=== PATIENT | male | born 1990 | race Caucasian/White ===

== ENCOUNTER → 2022-12-07 | Outpatient (CLI) | payer BC ==
--- NOTE | 2022-12-08 20:54 | MR ---
EXAMINATION TYPE: MR knee RT wo con DATE OF EXAM: 12/07/2022 COMPARISON: None HISTORY: 32-year-old male M25.561, Pain in right knee TECHNIQUE: Multiplanar, multisequence imaging of the right knee is performed without IV contrast. FINDINGS: There are diminutive fibers of the ACL, possibly relating to prior injury. PCL is intact. The MCL and LCL complex are intact. There is a diminutive body of the medial meniscus possibly relating to prior injury or partial menisc ectomy. Clinically correlate. Degenerative signal within the body of the lateral meniscus without discrete tear. Tricompartmental articular cartilage volume appears maintained. Physiologic knee joint fluid. No sizable Monroe's cyst. There is fusiform thickening of the proximal to middle third patellar tendon with abnormal intrinsic signal and surrounding soft tissue edema. In addition, there is a partial thickness tear involving mi d and medial fibers of the proximal patellar tendon measuring 1.0 cm long and 1.0 cm wide. Quadriceps tendon is intact. Normal popliteal artery anatomy in muscle bulk. No suspicious bone marrow replacement. IMPRESSION: 1. Marked contusion of the proximal to mid patellar tendon with surrounding soft tissue edema. There is an accompanying partial-thickness tear measuring 10 x 10 mm of the mid and medial fibers at its pa tellar origin. 2. Diminutive fibers of the ACL, possibly relating to prior injury. 3. Additional diminutive body of the medial meniscus. Query history of prior meniscal tear or partial meniscectomy.
== END | disposition home or self-care (01) ==
LOC: RADMRIMAIN 05:47
PROVIDERS: ATTEND Orthopaedic Surgery
DX: S83.241A Other tear of medial meniscus, current injury, right knee, initial encounter (principal)